=== PATIENT | male | born 1950 | race Caucasian/White ===

== ENCOUNTER → 2019-09-14 08:46 | Outpatient (CLI) | payer MEDICARE, OTHER, SELFPAY ==
[2019-09-14 10:37] LABS: Prostate Specific Antigen 4.93 ng/mL (0.10-4.00)
== END ==
PROVIDERS: PCP Family Medicine; Visit Provider Specialist
DX: R97.20 Elevated prostate specific antigen [PSA] (principal); N40.1 Benign prostatic hyperplasia with lower urinary tract symptoms
CPT/HCPCS: 36415; 84153

== ENCOUNTER → 2019-12-21 08:48 | Outpatient (CLI) | payer MEDICARE, OTHER, SELFPAY ==
[2019-12-21 11:02] LABS: Prostate Specific Antigen 5.15 ng/mL (0.10-4.00)
== END ==
PROVIDERS: PCP Family Medicine; Referring Provider Specialist; Visit Provider Specialist
DX: N40.1 Benign prostatic hyperplasia with lower urinary tract symptoms (principal)
CPT/HCPCS: 36415; 84153

== ENCOUNTER → 2020-03-28 08:52 | Outpatient (CLI) | payer MEDICARE, OTHER, SELFPAY | PROVIDERS: PCP Family Medicine; Referring Provider Specialist; Visit Provider Specialist | DX: N40.1 Benign prostatic hyperplasia with lower urinary tract symptoms (principal) | CPT/HCPCS: 36415; 84153 ==

== ENCOUNTER → 2020-08-27 12:05 | Outpatient (CLI) | payer MEDICARE, OTHER, SELFPAY ==
--- NOTE | 2020-08-27 12:07 | DI.MRI.S_ITS ---
PROCEDURE: MR PELIS WO/W CON INDICATIONS: prostate cancer TECHNIQUE: Coronal HASTE, axial T1 FSE with fat saturation, 3-plane nonbreath-hold T2 FSE. After the administration of contrast, dynamic axial, delayed axial and coronal VIBE or 2-D FLASH with fat saturation through the pelvis. Optional diffusion weighted imaging and ADC may be performed. COMPARISON: None. FINDINGS: Image quality: Diffusion weighted and dynamic contrast enhanced images are diagnostic. Prostate: Gland size is not significantly enlarged measuring 4.9 cm AP, 5.3 cm transverse and 5.3 cm craniocaudad. Utilizing pro late ellipse volume calculation the prostate gland measures 71.6 cc. Lesion size(s): None found Lesion location(s) (sector): None found Lesion description: None found T2 weighted imaging (T2WI) morphology score: Mild heterogeneity of signal character through the peripheral zone, without discrete mass, PI-RADS score 2. Also, mild heterogeneity within the transition zone including circumscribed hypointense nodules, consistent with BPH. Transition zone morphology score 2. Diffusion weighted imaging (DWI) morphology score: No abnormality seen on ADC mapping and high B-value diffusion-weighted imaging. PI-RADS score 1 Dynamic contrast enhancement (DCE): No abnormal generalized or focal increased or early enhancement through the transition zone or peripheral zone. PI-RADS contrast-enhancement score negative. Overall PI-RADS score: 1-2, low to very low probability for clinically significant prostate carcinoma based on this examination. Please note that this study does not entirely exclude the presence of low-grade prostate carcinoma. Genitourinary system: Bladder wall thickness is normal. Distal ureters are non distended. Bowel and peritoneum: No pathologic free pelvic fluid. Inferior colon and small bowel loops are normal in caliber. Nodes and vessels: No pelvic or inguinal adenopathy by size criteria. Iliac vessels are normal in caliber. Soft tissues: No inguinal hernias. Bones: Marrow demonstrates normal overall signal, without lesions to suggest metastases. IMPRESSION: Low to very low probability of clinically significant prostate carcinoma. No adenopathy or marrow space metastatic disease is seen, no discrete lesion involving the prostate parenchyma is found. Dictated by: Raji Dumont M.D. on 08/27/2020 at 15:40 Approved by: Raji Dumont M.D. on 08/27/2020 at 16:01
== END ==
PROVIDERS: PCP Family Medicine; Referring Provider Specialist; Visit Provider Specialist
DX: C61 Malignant neoplasm of prostate (principal)
CPT/HCPCS: 72197

== ENCOUNTER → 2020-11-20 11:46 | Outpatient (CLI) | payer MEDICARE, OTHER, SELFPAY ==
[2020-11-20 13:26] LABS: Prostate Specific Antigen 4.92 ng/mL (0.10-4.00)
== END ==
PROVIDERS: PCP Family Medicine; Referring Provider Specialist; Visit Provider Specialist
DX: C61 Malignant neoplasm of prostate (principal); R97.20 Elevated prostate specific antigen [PSA]; N13.8 Other obstructive and reflux uropathy
CPT/HCPCS: 36415; 84153; 99214